=== PATIENT | female | born 1935 | race Caucasian/White ===

== ENCOUNTER 2018-05-07 08:39 | Outpatient (CLI) | payer MEDICARE ==
--- NOTE | 2018-05-11 11:17 | RAD ---
MODIFIED BARIUM SWALLOW: Exposure: 26.8 seconds, 0.3333 mGy*cm^2. History: Dysphagia, unspecific. Gastroesophageal reflux disease without esophagitis. FINDINGS: In the presence of speech pathologist, the patient was administered nectar thick, thin liquid, and pu ree consistencies. Barium tablet was also administered. There is evidence of penetration. Please refer to speech pathologist report for feeding recommendatio ns. IMPRESSION: Penetration. Please refer to speech pathology report for feeding recommendations. POS: JENNY
== END 2018-05-07 08:40 | disposition home or self-care (01) ==
PROVIDERS: ATTEND Family Medicine
DX: R13.10 Dysphagia, unspecified (principal); K21.9 Gastro-esophageal reflux disease without esophagitis
CPT/HCPCS: 74230; G8996-GN-CK; G8997-GN-CK; G8998-GN-CK

== ENCOUNTER 2019-04-08 10:09 | Outpatient (CLI) | payer MEDICARE, OTHER | END 2019-04-08 10:10 | disposition home or self-care (01) | PROVIDERS: ATTEND Internal Medicine | DX: R63.3 Feeding difficulties (principal); K21.9 Gastro-esophageal reflux disease without esophagitis | CPT/HCPCS: 74230 ==

== ENCOUNTER 2021-03-07 17:47 | Emergency (ER) | payer MEDICARE, OTHER ==
[~2021-03-07 17:47] MED LIST: Iopamidol-370 76% 500 ML 1 ML ONE
[2021-03-07 19:38] LABS: #Basophils 0.1 thou/uL (0.0-0.2); #Eosinphils 0.6 thou/uL (0.0-0.7); #Lymphocytes 2.1 thou/uL (1.20-3.40); #Monocytes 0.7 thou/uL (0.11-0.59); #Neutrophils 7.2 thou/uL (1.40-6.50); %Basophils 0.5 % (0.0-1.0); %Eosinophils 5.6 % (0.0-10.0); %Lymphocytes 19.8 % (21.0-51.0); %Monocytes 6.2 % (0.0-10.0); %Neutrophils 67.9 % (42.0-75.0); Hemoglobin 10.8 g/dL (12.0-16.0); Mean Corpuscular HGB CONC 31.5 g/dL (32.0-36.0); Mean Corpuscular Hemoglobin 26.8 pg (27.0-31.0); Mean Corpuscular Volume 84.9 fL (78.0-98.0); Mean Platelet Volume 7.8 fL (7.4-10.4); Platelet Count 420 thou/uL (130-400); RBC Distribution Width 14.2 % (11.5-14.5); Red Blood Cell (RBC) Count 4.02 mill/uL (4.20-5.40); White Blood Cell (WBC) Count 10.7 thou/uL (4.8-10.8)
[2021-03-07 20:05] LABS: ALT (SGPT) 15 U/L (8-55); AST (SGOT) 19 U/L (5-34); Alkaline Phosphatase 91 U/L (40-110); Anion Gap 13 mmol/L (10-20); BUN (Urea Nitrogen) 21 mg/dL (9.8-20.1); Bilirubin, Total 0.5 mg/dL (0.2-1.2); Calc. Creatinine Clearance 0 mL/min (70-130); Calcium 9.9 mg/dL (7.8-10.44); Carbon Dioxide 26 mmol/L (23-31); Chloride 100 mmol/L (98-107); Globulin 4.7 g/dL (2.4-3.5); Glucose 120 mg/dL (83-110); Potassium 3.7 mmol/L (3.5-5.1); Protein, Total 7.7 g/dL (5.8-8.1); Sodium 135 mmol/L (136-145)
== END 2021-03-07 23:05 ==
LOC: ERS 17:47
DX: L98.499 Non-pressure chronic ulcer of skin of other sites with unspecified severity (principal); S50.12XA Contusion of left forearm, initial encounter; K21.9 Gastro-esophageal reflux disease without esophagitis; I25.10 Atherosclerotic heart disease of native coronary artery without angina pectoris
CPT/HCPCS: 72193; 80053; 85025; Q9967